=== PATIENT | female | born 1990 | race African-American/Black ===

== ENCOUNTER 2016-08-04 08:00 | Outpatient (CLI) | payer MEDICAID, OTHER | END 2016-08-04 23:59 | DX: M79.609 Pain in unspecified limb (principal); E55.9 Vitamin D deficiency, unspecified; Z83.2 Family history of diseases of the blood and blood-forming organs and certain disorders involving the immune mechanism ==

== ENCOUNTER 2017-02-22 11:01 | Emergency (ER) | payer MEDICAID ==
--- NOTE | 2017-02-22 12:47 | XRAY Preliminary Report ---
Exam: XR CHEST 2 VIEW PA/LAT IMPRESSION: Normal 2-view chest radiography. [facility] SITE ID: [id number]
--- NOTE | 2017-02-22 12:48 | XRAY Report ---
EXAM: CHEST RADIOGRAPHY EXAM DATE: 02/22/2017 12:13 PM. CLINICAL HISTORY: Cough X 2 months. COMPARISON: None. TECHNIQUE: 2 views. FINDINGS: Lungs/Pleura: No focal opacities evident. No pleural effusion. No pneumothorax. Normal volumes. Mediastinum: Heart and mediastinal contours are unremarkable. Other: None. IMPRESSION: Normal 2-view chest radiography. [facility] Referring Provider Line: [phone] SITE ID: [id number]
[2017-02-22 14:03] VITALS: BP 118/79
[2017-02-22] MEDS ORDERED: ALBUTEROL NEB 2.5 MG/3 ML INH STA (14:03)
[2017-02-22] MEDS ORDERED: DEXAMETHASONE 10 MG/ML VIAL PO STA (14:03)
--- NOTE | 2017-02-22 14:06 | ED Physician Documentation ---
History of Present Illness - Stated complaint Stated Complaint: COUGHING - Chief complaint Chief Complaint: Abd Pain - Additonal information Additional information: hx from pt 26 female denies preg to ER with cough X 2 months was txed for sinusitis s relief no travle kids int sick too no leg pain or swelling tried mucinex was coughing so hard last night it made her vomit and her abd is sore today from coughing and she coughed up a little bit of bloody mucous Review of Systems Constitutional: denies: Fever, Chills Nose: reports: Congestion Throat: denies: Sore throat Cardiac: denies: Chest pain / pressure Respiratory: reports: Cough PD PAST MEDICAL HISTORY - Past Medical History Past Medical History: No - Past Surgical History 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 - Present Medications Home Medications: Ambulatory Orders Medication Instructions Recorded Confirmed Albuterol Sulfate [Proair Hfa 2 puffs INH Q4H PRN #1 inhaler 02/22/17 Inhaler] Benzonatate [Tessalon] 100 mg PO TID PRN #20 capsule 02/22/17 Fluticasone [Flonase] 1 sprays ELIOT BID PRN #1 bottle 02/22/17 Pseudoephedrine [Sudafed] 30 mg PO Q6H PRN #20 tablet 02/22/17 predniSONE [Deltasone] 60 mg PO DAILY 5 Days tablet 02/22/17 - Allergies Allergies/Adverse Reactions: Allergies Allergy/AdvReac Type Severity Reaction Status Date / Time No Known Drug Allergies Allergy Verified 02/22/17 11:11 - Social History Does the pt smoke?: No Smoking Status: Never smoker Does the pt drink ETOH?: Yes Does the pt have substance abuse?: No - POLST Patient has POLST: No PD ED PE NORMAL - Vitals Vital signs reviewed: Yes - General General: Alert and oriented X 3 - HEENT HEENT: PERRL. No: Ears normal (occluded cerumen), Pharynx benign (PND) - Neck Neck: Supple, no meningeal sign - Cardiac Cardiac: RRR - Respiratory Respiratory: No respiratory distress, Other (whezing on left) - Abdomen Abdomen: Soft, Non tender - Derm Derm: Normal color - Extremities Extremities: No deformity, No edema, No calf tenderness / cord - Neuro Neuro: Alert and oriented X 3 Results - Vitals Vitals: Vital Signs - 24 hr 02/22/17 02/22/17 02/22/17 11:05 13:01 14:02 Temperature 36.3 C L 36.9 C 36.7 C Heart Rate 84 72 81 Respiratory 16 15 16 Rate Blood Pressure 128/71 122/79 118/79 O2 Saturation 100 100 97 Oxygen O2 Source Room air - Rads (name of study) CXR Radiology: See rad report (no acute) Departure - Departure Disposition: 01 Home, Self Care Clinical Impression: Reactive airway disease Qualifiers: Asthma severity: unspecified severity Asthma persistence: unspecified Asthma complication type: with acute exacerbation Qualified Code(s): J45.901 - Unspecified asthma with (acute) exacerbation Condition: Good Instructions: ED Reactive Airway Disease, ED Sinusitis No Abx Follow-Up: Yvette Oconnor ARNP [Primary Care Provider] - Prescriptions: Albuterol Sulfate [Proair Hfa Inhaler] 2 puffs INH Q4H PRN #1 inhaler PRN Reason: Shortness Of Air/Wheezing Benzonatate [Tessalon] 100 mg PO TID PRN #20 capsule PRN Reason: to ease cough Fluticasone [Flonase] 1 sprays ELIOT BID PRN #1 bottle PRN Reason: allergies predniSONE [Deltasone] 60 mg PO DAILY 5 Days tablet Pseudoephedrine [Sudafed] 30 mg PO Q6H PRN #20 tablet PRN Reason: congestion Comments: Try a sinus irrigation kit Return if worse - especially if cough up large amounts of blood
[2017-02-22] MEDS ORDERED: CHERRY SYRUP 10 ML UDC PO ONE (14:16)
[2017-02-22] MEDS ORDERED: DEXAMETHASONE 10 MG/ML VIAL ONE (14:16)
[2017-02-22] MEDS ORDERED: ALBUTEROL NEB 2.5 MG/3 ML INH ONE (14:18)
== END 2017-02-22 14:29 | disposition home or self-care (01) ==
LOC: ED 11:01
DX: J45.901 Unspecified asthma with (acute) exacerbation (principal)
CPT/HCPCS: 71020; 94664; 99283; A9270; J7613

== ENCOUNTER 2017-05-03 14:50 | Outpatient (CLI) | payer MEDICAID ==
--- NOTE | 2017-05-04 09:45 | XRAY Report ---
DATE OF SERVICE: 05/03/2017 THREE VIEW LUMBAR SPINE: 05/03/2017 CLINICAL INDICATION: Chronic low back pain. FINDINGS: AP, lateral, coned down views of the lumbar spine demonstrate normal height and alignment of the lumbar vertebral bodies. The disk spaces are preserved. There is no evidence of fracture or subluxation. The bowel gas pattern is unremarkable. IMPRESSION: NORMAL LUMBAR SPINE. TD: 05/04/2017 10:44
== END 2017-05-03 14:51 | disposition home or self-care (01) ==
LOC: DI 14:50
PROVIDERS: ATTEND Physician Assistant Medical
DX: M54.5 Low back pain (principal)
CPT/HCPCS: 72100

== ENCOUNTER 2017-06-14 03:12 | Emergency (ER) | payer MEDICAID ==
[2017-06-14 03:22] VITALS: BP 107/93
[2017-06-14] MEDS ORDERED: IBUPROFEN 600 MG TABLET PO STA (03:31)
[2017-06-14] MEDS ORDERED: DEXAMETHASONE 10 MG/ML VIAL PO STA (03:31)
--- NOTE | 2017-06-14 03:35 | ED Physician Documentation ---
PD HPI HEENT - Stated complaint Stated Complaint: SORE THROAT,BODY ACHES - Chief complaint Chief Complaint: Heent - History obtained from History obtained from: Patient - History of Present Illness Timing - onset: How many days ago Location: Throat Worsens: Swalllowing Associated symptoms: Fever, Swollen nodes Similar symptoms before: Has not had sx before Recently seen: Not recently seen - Additional information Additional information: patient is a 26 year old female with no significant past medical history who is presenting to the emergency department for fever, sore throat and throat swelling. patient's daughter was recently treated for strep throat. 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 - Present Medications Home Medications: Ambulatory Orders Medication Instructions Recorded Confirmed Albuterol Sulfate [Proair Hfa 2 puffs INH Q4H PRN #1 inhaler 02/22/17 Inhaler] Benzonatate [Tessalon] 100 mg PO TID PRN #20 capsule 02/22/17 Fluticasone [Flonase] 1 sprays ELIOT BID PRN #1 bottle 02/22/17 Pseudoephedrine [Sudafed] 30 mg PO Q6H PRN #20 tablet 02/22/17 predniSONE [Deltasone] 60 mg PO DAILY 5 Days tablet 02/22/17 - Allergies Allergies/Adverse Reactions: Allergies Allergy/AdvReac Type Severity Reaction Status Date / Time No Known Drug Allergies Allergy Verified 06/14/17 03:22 - Social History Does the pt smoke?: No Smoking Status: Never smoker Does the pt drink ETOH?: Yes Does the pt have substance abuse?: No - POLST Patient has POLST: No PD ED PE NORMAL - Vitals Vital signs reviewed: Yes - General General: Alert and oriented X 3, No acute distress - HEENT HEENT: Atraumatic, PERRL - Neck Neck: Supple, no meningeal sign - Cardiac Cardiac: RRR, No murmur - Respiratory Respiratory: No respiratory distress, Clear bilaterally - Abdomen Abdomen: Soft, Non tender, Non distended - Derm Derm: Normal color, Warm and dry, No rash - Extremities Extremities: No deformity - Neuro Neuro: Alert and oriented X 3, No motor deficit, No sensory deficit, Normal speech Eye Opening: Spontaneous Motor: Obeys Commands Verbal: Oriented GCS Score: 15 - Psych Psych: Normal mood PD ED PE EXPANDED - HEENT HEENT: R TM dull, L TM dull, Dry mucous membranes, Pharyngeal erythema, Swollen tonsils, Tonsillar exudate Results - Vitals Vitals: Vital Signs - 24 hr 06/14/17 03:21 Temperature 37.8 C H Heart Rate 90 Respiratory 18 Rate Blood Pressure 107/93 H O2 Saturation 96 Oxygen O2 Source Room air - Labs Labs: Laboratory Tests 06/14/17 03:25 Group A Strep Rapid POSITIVE H PD MEDICAL DECISION MAKING - ED course Complexity details: reviewed old records, reviewed results, re-evaluated patient , considered differential, d/w patient ED course: Patient was seen and examined at bedside. rapid strep was performed. patient was treated with decadron and ibuprofen. rapid strep was positive and patient was treated with bicillin. Patient required no further work up and was stable for discharge with outpatient follow up. Departure - Departure Disposition: 01 Home, Self Care Clinical Impression: Strep pharyngitis Condition: Good Instructions: ED Strep Pharyngitis Conf Follow-Up: Yvette Oconnor ARNP [Primary Care Provider] - As Needed Comments: Your symptoms today are being caused by strep throat. You had your dose of antibiotics so you will not need any more treatment. You can take motrin, tylenol and throat lozenges as needed for pain. You should follow up with your doctor if your symptoms don't improve in the next few days. You may return to the emergency department at any time for new, worsening or uncontrollable symptoms.
[2017-06-14] MEDS ORDERED: PENICILLIN G BENZATHINE 600,000 UNIT/ML SYRINGE IM STA (03:36)
[2017-06-14] MEDS ORDERED: LIDOCAINE VISCOUS 2% 15 ML UDC MM STA (03:40)
== END 2017-06-14 04:03 | disposition home or self-care (01) ==
LOC: ED 03:12
DX: J02.0 Streptococcal pharyngitis (principal)
CPT/HCPCS: 87430; 99283; A9270

== ENCOUNTER 2017-07-07 19:53 | Emergency (ER) | payer MEDICAID ==
[2017-07-07] MEDS ORDERED: IPRATROPIUM/ALBUTEROL 3 ML NEB INH STA (20:21)
--- NOTE | 2017-07-07 21:18 | XRAY Report ---
EXAM: CHEST RADIOGRAPHY EXAM DATE: 07/07/2017 08:33 PM. CLINICAL HISTORY: Cough. COMPARISON: 02/22/2017. TECHNIQUE: 2 views. FINDINGS: Lungs/Pleura: No focal opacities evident. No pleural effusion. No pneumothorax. Normal volumes. Mediastinum: Heart and mediastinal contours are unremarkable. Other: None. IMPRESSION: No acute cardiopulmonary abnormality. [facility] Referring Provider Line: [phone] SITE ID: [id number]
--- NOTE | 2017-07-07 21:18 | XRAY Preliminary Report ---
Exam: XR CHEST 2 VIEW X-RAY IMPRESSION: No acute cardiopulmonary abnormality. [facility] SITE ID: [id number]
--- NOTE | 2017-07-07 21:43 | ED Physician Documentation ---
PD HPI URI - Stated complaint Stated Complaint: SOA - Chief complaint Chief Complaint: Resp - History obtained from History obtained from: Patient - History of Present Illness Timing - onset: How many months ago (1 month of cough and now progressing well, with worse cough and fevers the past few days.) Associated symptoms: Productive cough, Chest pain. 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 - Present Medications Home Medications: Ambulatory Orders Medication Instructions Recorded Confirmed Albuterol Sulfate [Proair Hfa 2 puffs INH Q4H PRN #1 inhaler 02/22/17 Inhaler] Benzonatate [Tessalon] 100 mg PO TID PRN #20 capsule 02/22/17 Fluticasone [Flonase] 1 sprays ELIOT BID PRN #1 bottle 02/22/17 Pseudoephedrine [Sudafed] 30 mg PO Q6H PRN #20 tablet 02/22/17 predniSONE [Deltasone] 60 mg PO DAILY 5 Days tablet 02/22/17 Albuterol Sulf [Ventolin Hfa 1 - 2 puffs INH Q4HR PRN #1 inhaler 07/07/17 Inhaler] Benzonatate [Tessalon] 100 mg PO TID PRN #25 capsule 07/07/17 Cetirizine [ZyrTEC] 10 mg PO DAILY #30 tablet 07/07/17 Dexamethasone [Decadron] 4 mg PO DAILY #5 tablet 07/07/17 Doxycycline Monohydrate 100 mg PO BID #14 tablet 07/07/17 - Allergies Allergies/Adverse Reactions: Allergies Allergy/AdvReac Type Severity Reaction Status Date / Time No Known Drug Allergies Allergy Verified 07/07/17 20:04 - Social History Does the pt smoke?: No Smoking Status: Never smoker Does the pt drink ETOH?: Yes Does the pt have substance abuse?: No - POLST Patient has POLST: No PD ED PE NORMAL - General General: Alert and oriented X 3, No acute distress, Well developed/nourished - HEENT HEENT: Ears normal, Moist mucous membranes, Pharynx benign - Neck Neck: Supple, no meningeal sign, No adenopathy - Cardiac Cardiac: RRR, No murmur - Respiratory Respiratory: Clear bilaterally - Back Back: No CVA TTP - Derm Derm: Normal color, Warm and dry, No rash - Extremities Extremities: No calf tenderness / cord - Neuro Neuro: Alert and oriented X 3, No motor deficit, Normal speech Results - Vitals Vitals: Oxygen O2 Source Room air Departure - Departure Disposition: Home, Self Care Clinical Impression: Upper respiratory infection Qualifiers: URI type: unspecified URI Qualified Code(s): J06.9 - Acute upper respiratory infection, unspecified Condition: Stable Record reviewed to determine appropriate education?: Yes Instructions: ED Bronchitis Asthmatic Follow-Up: Yvette Oconnor ARNP [Primary Care Provider] - Prescriptions: Albuterol Sulf [Ventolin Hfa Inhaler] 1 - 2 puffs INH Q4HR PRN #1 inhaler PRN Reason: Shortness Of Air/Wheezing Benzonatate [Tessalon] 100 mg PO TID PRN #25 capsule PRN Reason: Cough Cetirizine [ZyrTEC] 10 mg PO DAILY #30 tablet Dexamethasone [Decadron] 4 mg PO DAILY #5 tablet Doxycycline Monohydrate 100 mg PO BID #14 tablet Comments: Drink lots of fluids. This sounds like he may be developing a secondary bronchitis type infection and so use the doxycycline antibiotic twice daily for a week. There is likely some allergy or mild asthma type component and so use albuterol inhaler 2 puffs 4 times a day for the next 7-10 days. Decadron steroid anti-inflammatory daily for 5 more days. He can use Tessalon if needed for cough. Use cetirizine antihistamine daily for the next month to see if the phlegm decreases even after you are feeling better. Recheck if not improving though over the next few days. Discharge Date/Time: 07/07/17 22:42
[2017-07-07] MEDS ORDERED: DOXYCYCLINE 100 MG TABLET PO STA (22:07)
[2017-07-07] MEDS ORDERED: DEXAMETHASONE 10 MG/ML VIAL PO STA (22:07)
[2017-07-07] MEDS ORDERED: ACETAMINOPHEN 325 MG TABLET PO STA (22:07)
[2017-07-07] MEDS ORDERED: BENZONATATE 100 MG CAPSULE PO STA (22:07)
[2017-07-07 22:42] VITALS: BP 121/81
== END 2017-07-07 22:42 | disposition home or self-care (01) ==
LOC: ED 19:53
DX: J06.9 Acute upper respiratory infection, unspecified (principal)
CPT/HCPCS: 71046; 94640; 99283; A9270

== ENCOUNTER 2017-10-15 23:10 | Emergency (ER) | payer MEDICAID ==
[2017-10-15 23:19] VITALS: BP 126/76
[2017-10-15] MEDS ORDERED: NAPROXEN 250 MG TABLET PO STA (23:56)
--- NOTE | 2017-10-16 00:26 | ED Physician Documentation ---
History of Present Illness - Stated complaint Stated Complaint: RT HAND PAIN - Chief complaint Chief Complaint: Ext Problem - History obtained from History obtained from: Patient - Additonal information Additional information: 26-year-old female presents to the emergency department with right wrist pain. The patient's pain has progressively worsened over the past 3-4 days and radiates into her hand and upper arm. Symptoms are described as moderate. Mild improvement with ibuprofen. The patient has had similar symptoms in the past which were attributed to carpal tunnel but the patient has not had a formal workup. The patient denies recent injury. The patient does use her hands on a regular basis for work and does repetitive motion. No other area of discomfort. Review of Systems Constitutional: denies: Fever Eyes: denies: Discharge Skin: denies: Lesions Musculoskeletal: reports: Extremity pain. 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 - Present Medications Home Medications: Ambulatory Orders Medication Instructions Recorded Confirmed Albuterol Sulfate [Proair Hfa 2 puffs INH Q4H PRN #1 inhaler 02/22/17 Inhaler] Benzonatate [Tessalon] 100 mg PO TID PRN #20 capsule 02/22/17 Fluticasone [Flonase] 1 sprays ELIOT BID PRN #1 bottle 02/22/17 Pseudoephedrine [Sudafed] 30 mg PO Q6H PRN #20 tablet 02/22/17 predniSONE [Deltasone] 60 mg PO DAILY 5 Days tablet 02/22/17 Albuterol Sulf [Ventolin Hfa 1 - 2 puffs INH Q4HR PRN #1 inhaler 07/07/17 Inhaler] Benzonatate [Tessalon] 100 mg PO TID PRN #25 capsule 07/07/17 Cetirizine [ZyrTEC] 10 mg PO DAILY #30 tablet 07/07/17 Dexamethasone [Decadron] 4 mg PO DAILY #5 tablet 07/07/17 Doxycycline Monohydrate 100 mg PO BID #14 tablet 07/07/17 Naproxen [Naprosyn] 500 mg PO BID PRN 30 Days #30 10/16/17 tablet - Allergies Allergies/Adverse Reactions: Allergies Allergy/AdvReac Type Severity Reaction Status Date / Time No Known Drug Allergies Allergy Verified 10/15/17 23:19 - Social History Does the pt smoke?: No Smoking Status: Never smoker Does the pt drink ETOH?: Yes Does the pt have substance abuse?: No - POLST Patient has POLST: No PD ED PE NORMAL - General General: Alert and oriented X 3, No acute distress - HEENT HEENT: Atraumatic, PERRL, EOMI - Neck Neck: Supple, no meningeal sign - Respiratory Respiratory: No respiratory distress - Derm Derm: Normal color - Extremities Extremities: No deformity, No edema, Other (The patient has full active range of motion of bilateral shoulders, elbows, wrists and hands. The patient has normal motor function. The patient has normal median, ulnar and radial nerve function. There is normal radial pulses. The patient has normal sensation to light touch. There is no evidence of swelling. No evidence of compartment syndrome. Brisk cap refill bilaterally.) - Neuro Neuro: Alert and oriented X 3, No motor deficit, No sensory deficit, Normal speech - Psych Psych: Normal mood Results - Vitals Vitals: Vital Signs - 24 hr 10/15/17 23:16 Temperature 36.4 C L Heart Rate 78 Respiratory 18 Rate Blood Pressure 126/76 O2 Saturation 100 Oxygen O2 Source Room air - Rads (name of study) No standard instances Radiology: See rad report, Other (Right wrist x-ray: No acute fracture) PD MEDICAL DECISION MAKING - ED course Complexity details: other (The patient's symptoms may be secondary to a tendinitis or carpal tunnel. The patient currently appears appropriate for discharge home and ongoing outpatient management. I discussed warning signs and recommended returning to the emergency department immediately for worsening or any concerns.) - Sepsis Event Vital Signs: Vital Signs - 24 hr 10/15/17 23:16 Temperature 36.4 C L Heart Rate 78 Respiratory 18 Rate Blood Pressure 126/76 O2 Saturation 100 Oxygen O2 Source Room air Departure - Departure Disposition: 01 Home, Self Care Clinical Impression: Wrist pain, acute Qualifiers: Laterality: unspecified laterality Qualified Code(s): M25.539 - Pain in unspecified wrist Condition: Good Instructions: ANTI-INFLAMMATORY, General Follow-Up: Yvette Oconnor ENTRY REP [Primary Care Provider] - Within 1 week (These follow -up with your primary care physician so that they can further workup and evaluate your symptoms) Prescriptions: Naproxen [Naprosyn] 500 mg PO BID PRN 30 Days #30 tablet PRN Reason: Pain Comments: Please return to the emergency department for worsening symptoms or any concerns Discharge Date/Time: 10/16/17 00:53
[2017-10-16] MEDS ORDERED: NAPROXEN 250 MG TABLET PO ONE (00:27)
--- NOTE | 2017-10-16 00:37 | XRAY Report ---
Procedure Date: 10/16/2017 Accession Number: [id number] / [id number] Procedure: XR - Wrist 3 View RT CPT Code: FULL RESULT: EXAM: RIGHT WRIST RADIOGRAPHY EXAM DATE: 10/16/2017 12:25 AM. CLINICAL HISTORY: Pain. COMPARISON: None. TECHNIQUE: 3 views. FINDINGS: Bones: Normal. No fractures or bone lesions. Joints: Normal. No subluxations. Soft Tissues: Unremarkable. IMPRESSION: Normal wrist radiography. [facility]
== END 2017-10-16 00:53 | disposition home or self-care (01) ==
LOC: ED 23:10
DX: M25.531 Pain in right wrist (principal)
CPT/HCPCS: 73100; 73110; 99283; A9270

== ENCOUNTER 2018-03-20 01:41 | Emergency (ER) | payer MEDICAID ==
[2018-03-20 02:01] LABS: BILIRUBIN,URINE NEGATIVE (NEGATIVE); GLUCOSE, URINE (UA) NEGATIVE (NEGATIVE); KETONES,URINE (UA) NEGATIVE (NEGATIVE); LEUKOCYTE ESTERASE, URINE NEGATIVE (NEGATIVE); NITRITE,URINE NEGATIVE (NEGATIVE); OCCULT BLOOD,URINE SMALL (NEGATIVE); PROTEIN,URINE NEGATIVE (NEGATIVE); UROBILINOGEN,URINE 0.2 (NORMAL) E.U./dL (NORMAL)
[2018-03-20 02:05] LABS: CLARITY,URINE CLEAR (CLEAR)
[2018-03-20 02:11] LABS: BACTERIA,URINE None Seen /HPF (None Seen); RBC,URINE 0-5 /HPF (0-5); SQUAMOUS EPITHELIAL CELL,UR MANY Squamous (<= Few)
[2018-03-20] MEDS ORDERED: KETOROLAC 60 MG/2 ML VIAL IM STA (02:11)
[2018-03-20 02:13] LABS: HCG UR QUAL NEGATIVE
[2018-03-20 03:51] VITALS: BP 121/81
--- NOTE | 2018-03-20 03:53 | ED Physician Documentation ---
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 She reports urgency of urination, and nausea. She denies vomiting, fever, or vaginal bleeding. Her last menstrual period was 4 weeks ago. She denies history of similar symptoms in the past. Past surgical history is significant for C-sections 3 and for bilateral tubal ligation. Review of Systems Constitutional: denies: Fever Nose: denies: Congestion Throat: denies: Sore throat Cardiac: denies: Chest pain / pressure Respiratory: denies: Dyspnea, Cough GI: reports: Nausea. denies: Abdominal Pain, Vomiting : reports: LMP (4 weeks ago.), Other (Urgency of urination.). 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 - Present Medications Home Medications: Ambulatory Orders Medication Instructions Recorded Confirmed Hydrocodone/Acetaminophen 1 each PO Q6HR PRN #10 tablet 03/20/18 [Hydrocodon-Acetaminophn 10-325] Metronidazole [Flagyl] 500 mg PO BID #20 tablet 03/20/18 - Allergies Allergies/Adverse Reactions: Allergies Allergy/AdvReac Type Severity Reaction Status Date / Time No Known Drug Allergies Allergy Verified 03/20/18 01:47 - Social History Does the pt smoke?: No Smoking Status: Never smoker Does the pt drink ETOH?: Yes Does the pt have substance abuse?: No - POLST Patient has POLST: No PD ED PE NORMAL - Vitals Vital signs reviewed: Yes (normal) - General General: Alert and oriented X 3, Well developed/nourished - HEENT HEENT: Atraumatic, Pharynx benign - Neck Neck: No adenopathy - Cardiac Cardiac: RRR, No murmur - Respiratory Respiratory: No respiratory distress, Clear bilaterally - Abdomen Abdomen: Normal bowel sounds, Soft, Other (Tenderness to palpation in the right adnexal region.) - Female Female : 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 No: Vaginal Bleeding, CMT, Adnexal Mass Results - Vitals Vitals: Oxygen O2 Source Room air - Labs Labs: Microbiology 03/20/18 03:28 Wet Prep - Final Vaginal Laboratory Tests 03/20/18 03/20/18 01:55 02:10 Urine Color YELLOW Urine Clarity CLEAR Urine pH 6.0 Ur Specific [place] 1.025 1.025 Urine Protein NEGATIVE Urine Glucose (UA) NEGATIVE Urine Ketones NEGATIVE Urine Occult Blood SMALL H Urine Nitrite NEGATIVE Urine Bilirubin NEGATIVE Urine Urobilinogen 0.2 (NORMAL) Ur Leukocyte Esterase NEGATIVE Urine RBC 0-5 Urine WBC 0-3 Ur Squamous Epith Cells MANY Squamous H Urine Bacteria None Seen Ur Microscopic Review INDICATED Urine Culture Comments NOT INDICATED Urine HCG, Qual NEGATIVE PD MEDICAL DECISION MAKING - ED course Complexity details: reviewed results, re-evaluated patient, considered differential, d/w patient ED course: The patient's presentation is significant for right-sided pelvic pain that is likely due to an ovarian cyst. Her test is negative making ectopic extremely unlikely. Appendicitis was considered, but her symptoms are otherwise not suggestive of appendicitis. Urinalysis is negative for urinary tract infection. PID was considered, and GC included cultures are pending. Wet mount is positive for clue cells, consistent with bacterial vaginosis. Treatment in the emergency department included administration of ketorolac 60 mg IM, which nearly completely relieved the patient's symptoms. On repeat examination her tenderness is minimal. She is being discharged with prescription for metronidazole, and for Vicodin, 10 tablets. I discussed with her the workup and diagnosis, outpatient treatment and follow-up, as well as potentially worrisome signs or symptoms that should prompt reevaluation in the emergency department. Departure - Departure Disposition: 01 Home, Self Care Clinical Impression: Pelvic pain, Bacterial vaginosis Condition: Stable Instructions: ED Vaginosis Bacterial Follow-Up: Yvette Oconnor ARNP [Primary Care Provider] - Prescriptions: Hydrocodone/Acetaminophen [Hydrocodon-Acetaminophn 10-325] 1 each PO Q6HR PRN #10 tablet PRN Reason: Pain Metronidazole [Flagyl] 500 mg PO BID #20 tablet Comments: Take metronidazole (Flagyl), twice daily as prescribed. You can use ibuprofen, up to 800 mg 3 times daily if needed for pain. You can also use Vicodin as prescribed if needed for pain. 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 Call to schedule an appointment. Return to the emergency department if you develop increasing pain, fever with shaking chills, persistent vomiting, or otherwise worsening symptoms. Discharge Date/Time: 03/20/18 04:13
== END 2018-03-20 04:13 | disposition home or self-care (01) ==
LOC: ED 01:41
DX: R10.2 Pelvic and perineal pain (principal); N76.0 Acute vaginitis
CPT/HCPCS: 81001; 81003; 81025; 87086; 87210; 87491; 87591; 96372; 99283